=== PATIENT | female | born 1935 | race Caucasian/White ===

== ENCOUNTER 2017-07-06 14:35 | Inpatient (IN) | payer MEDICARE ==
[2017-07-06] VITALS (18 sets, daily range): BP systolic 87–126; BP diastolic 66–94
[~2017-07-06] VITALS: Ht 165.1 cm; Wt 108.2 kg
--- NOTE | 2017-07-06 12:46 | NUR ---
this credit underwriter called [facility]; spoke with ROSSI Palmer; report received; per estela, JULIÁN MARIE has notified accepting of asa in orders and condition; Estela to return call to this credit underwriter with ETA
--- NOTE | 2017-07-06 13:49 | NUR ---
received call from ROSSI Palmer; ETA 30 min; will continue to monitor
--- NOTE | 2017-07-06 14:34 | NUR ---
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
[~2017-07-06 14:35] MED LIST: ACCUPRIL5 MG PO; ADVAIR DISK1 INH; ASPIRIN EC81 MG PO; ASPIRIN325 MG PO; CALCITRIOL0.5 MC1 PO; CARVEDILOL6.25 MG PO; CENTRUM SILVER1 TAB PO; COUMADIN5 MG PO; CRESTOR20 MG PO; FLUTICASONE50 MCG; IPRATROPIU0.5 MG/3 M NEB; JANUVIA50 MG PO; LEVEMIR FL100 UNIT/M SC; LOVENOX 10100 MG/1 M SC; PLAVIX75 MG PO; PREDNISONE10 MG PO; SERTRALINE HCL50 MG PO; VITAMIN D1000 UNI1 PO; ZITHROMAX500 MG PO
--- NOTE | 2017-07-06 15:20 | NUR ---
spouse and daughter at bedside; pt offers no complaints; po fluids provided; pt updated on plan of care; afib/ivcd on monitor; blandon to gravity; bloody urine noted; pt denies taking blood thinners at home; admits to asa and plavix; oxymask changed to o2 per nc at 4L; call light within reach; will continue to monitor
[2017-07-06] MEDS ORDERED: CLOPIDOGREL75 MG PO (15:25)
[2017-07-06] MEDS ORDERED: ALBUTEROL SUL0.083 % IN (15:32)
[2017-07-06] MEDS ORDERED: ASPIRIN EC325 MG PO (15:33)
--- NOTE | 2017-07-06 15:39 | NUR ---
call placed to Dr ePraza; no amswer; message left; awaiting return call
[2017-07-06] MEDS ORDERED: COREG3.125 MG PO (15:47)
[2017-07-06] MEDS ORDERED: ASPIRIN81 MG PO (15:47)
--- NOTE | 2017-07-06 15:50 | NUR ---
return call received from Dr Peraza; updated in pt condition, cardiac reading, vs; orders received and placed on chart
--- NOTE | 2017-07-06 16:50 | NUR ---
lab rep at bedside; will continue to monitor
--- NOTE | 2017-07-06 17:07 | NUR ---
pt resting in bed with eyes closed; moaning resp noted; pt easily aroused; offers no complaints; iv patent; cardizem being weaned as per orders; amiodarone gtt cont at 1mg/min per protocol; o2 per nc; afib/ ivcd on monitor; rate 118; blandon to gravity; call light within reach; will continue to monitor
[2017-07-06 17:15] LABS: URINE BILIRUBIN - DIPSTICK SMALL (NEGATIVE); URINE BLOOD DIPSTICK LARGE (NEGATIVE); URINE GLUCOSE - DIPSTICK 100 mg/dL (NEGATIVE); URINE KETONE TRACE mg/dL (NEGATIVE); URINE LEUK ESTERASE NEGATIVE (Negative); URINE NITRITE - DIPSTICK POSITIVE (Negative); URINE PROTEIN - DIPSTICK >=300 mg/dL (NEG-TRACE); URINE SPECIFIC GRAVITY >=1.030
[2017-07-06 17:16] LABS: URINE CLARITY CLOUDY; URINE COLOR BLOODY; URINE RBC TNTC RBC/hpf (0-5)
[2017-07-06 17:17] LABS: URINE BACTERIA MODERATE hpf; URINE SQUAMOUS EPITHELIAL CELL FEW EPI/hpf (0-FEW)
--- NOTE | 2017-07-06 17:21 | NUR ---
Raheem at [facility] called per this abstract writer in regards to lovenox; times to be changed
--- NOTE | 2017-07-06 18:11 | NUR ---
awake in bed; no distress noted; offers no complaints; iv patent; amiodarone gtt infusing at 1mg/min; no redness or edema noted at site; cardizem gtt weaned; afib on monitor; rate 110-130s; tachypneic; pt denies needs; bed in lowest position; call light within reach
--- NOTE | 2017-07-06 19:00 | NUR ---
REPORT FROM Anoop ESPINOSA RN. ASSUMED PT. CARE.
--- NOTE | 2017-07-06 19:51 | NUR ---
PT. FOUND AWAKE, ALERT, ORIENTED X 3. SKIN WARM AND DRY. GAIL. PT. REMAINS A-FIB WITH RATE BETWEEN 90-130. BP STABLE AT THIS TIME 119/85. PT. C/O 2/10 BACK/NECK PAIN WHICH IS CHRONIC FOR HER. DENIES OTHER COMPLAINTS OF PAIN OR NEED. RESPS EVEN AND UNLABORED. PT. REPORTS IMPROVEMENT IN SX OF SOB SINCE EARLIER TODAY. UPDATED MED REC PER PT. STATEMENTS. WILL MAKE MD AWARE. CALL LIGHT IS WITHIN REACH. WILL CONTINUE TO MONITOR.
--- NOTE | 2017-07-06 20:45 | NUR ---
PT. BLOOD SUGAR 238 AT THIS TIME. PT. REMAINS STABLE. HR IS SLIGHTLY IMPROVED AFTER METOPROLOL ADMINISTRATION. REMAINS TACHYPNEIC AND IN A-FIB WITH RATE IN THE 80-120'S. CALL LIGHT WITHIN REACH. WILL CONTINUE TO MONITOR.
--- NOTE | 2017-07-06 22:35 | NUR ---
LAB AT BEDSIDE AT THIS TIME. PT. MEDICATED WITH LOVENOX ORDERED. REMAINS STABLE. HR REMAINS A-FIB IN THE 100-120'S. WILL CONTINUE TO MONITOR.
[2017-07-07] VITALS (24 sets, daily range): BP systolic 81–127; BP diastolic 35–87
--- NOTE | 2017-07-07 00:15 | NUR ---
AMIODARONE DRIP CONTINUES AT 0.5 MG/HR. HR REMAINS A-FIB WITH RATE IN THE 100-120'S. PT. REMAINS TACHYPENIC. SPO2 REMAINS STABLE ON 4L VIA NC. NO COMPLAINS OF PAIN OR NEED AT THIS TIME.
--- NOTE | 2017-07-07 01:55 | NUR ---
PT. CONTINUES TO REST IN NO DISTRESS. REMAINS TACHYPENIC. VSS. REMAINS A-FIB IN THE 100-120'S. AMIODARONE DRIP CONTINUES AT 0.5 MG/HR.
--- NOTE | 2017-07-07 02:15 | NUR ---
PT. REPOSITIONED IN BED FOR COMFORT. ASSISTED TO LT. SIDE LYING AT THIS TIME. PT. DENIES OTHER COMPLAINTS OR NEEDS AT THIS TIME. REMAINS IN A-FIB WITH RATE IN THE 100-120'S.
--- NOTE | 2017-07-07 04:10 | NUR ---
PT. RESTING ON RT. SIDE IN NO DISTRESS. REMAINS TACHYPENIC. REMAINS IN A-FIB WITH RATE IN THE 100-120'S. SPO2 92% ON 4L NC. CALL LIGHT REMAINS WITHIN REACH. WILL CONTINUE TO MONITOR.
[2017-07-07 05:11] LABS: HEMATOCRIT 37.6 % (37.0-47.0); HEMOGLOBIN 12.2 g/dl (12.0-16.0); IMMATURE GRANULOCYTES 0.6 % (0.0-1.0); MEAN CELL VOLUME 92.4 fL CALC (80.0-100.0); MEAN CORPUSCULAR HGB CONC 32.4 g/L CALC (32.0-36.0); NEUT# 6.72 thou/uL (2.00-7.15); RED BLOOD COUNT 4.07 mill/uL (4.20-5.60)
--- NOTE | 2017-07-07 05:30 | NUR ---
PT. PLACED ON BEDPAN AT THIS TIME. SCANT FORMED STOOL. PT. STATES UNABLE TO FINISH STOOL ON THE BEDPAN. WILL CONTINUE TO ASSIST NEEDED.
[2017-07-07 05:46] LABS: CALCIUM 10.8 mg/dL (8.4-10.2); CREATININE 1.6 mg/dL (0.5-1.0); POTASSIUM 4.6 mmol/l (3.5-5.1)
--- NOTE | 2017-07-07 06:05 | NUR ---
NEB TREATMENT IN PROGRESS. PT. LAYING ON RT. SIDE IN NO DISTRESS. REMAINS A-FIB WITH RATE OF 100-120. AMIODARONE DRIP CONTINUES AT 0.5MG/MIN. DENIES COMPLAINTS OF PAIN OR NEED.
--- NOTE | 2017-07-07 07:05 | NUR ---
resting in bed with eyes closed; easily aroused; pt offers no complaints; assessment completed at this time; pt alert and oriented; denies pain/ discomfort; no n/v noted; pt admits to improved sob; resp even and unlabored; tachypneic; lungs clear; skin color wnl; o2 per nc at 4L; prod cough of white sputum; hr irreg; strong pulses; no edema noted; afib/ivcd on monitor; abd soft with bs present; no bm noted per television script writer; blandon to gravity draining cloudy toña urine; cath urias intact; #18 in rw saline locked; #18 in lac patent with amiodarone gtt infusing at 0.5mg/min; no redness or edema noted at site; plan of care/ am meds explained; accucheck 203; call light within reach; will continue to monitor
--- NOTE | 2017-07-07 07:55 | NUR ---
awake occupational safety and health manager light; requesting bedpan for bm; bsc offered with refusal; pt placed on bedpan; afib on monitor; resp shallow/ tachypenic; iv intact; amiodarone gtt continues at 0.5mg/min; call light within reach; will continue to monitor
--- NOTE | 2017-07-07 08:45 | NUR ---
Dr Peraza at bedside to discuss plan of care
--- NOTE | 2017-07-07 09:12 | NUR ---
awake; assist with repositioning as per request; pt offers no complaints; afib on monitor; additional dose of coreg given as per orders; bp stable; o2 per nc; blandon to gravity; call light within reach; will continue to monitor
--- NOTE | 2017-07-07 10:04 | NUR ---
resting with eyes closed; no distress noted; resp shallow/ tachypneic; o2 per nc; afib 120s on monitor; call light within reach;
--- NOTE | 2017-07-07 10:40 | NUR ---
7 beat v-tach noted on monitor; Dr Peraza notified
--- NOTE | 2017-07-07 11:11 | NUR ---
accucheck of 207; insulin per orders/protocol; pt repositioned self; afib on monitor; will continue to monitor
--- NOTE | 2017-07-07 12:05 | NUR ---
pt awake; requesting to sit on sode of bed; assisted with repositioning; recliner offered with pt refusal; pt denies ability to stand; approx 5 min later pt requesting to go back to bed; repositioned per staff; afib on monitor; pt refused lunch; o2 per nc; blandon to gravity; afebrile; call light within reach; will continue to monitor
--- NOTE | 2017-07-07 12:49 | NUR ---
informed of amiodarone gtt ending per protocol; orders received and on chart
[2017-07-07 13:14] LABS: MAGNESIUM 1.6 mg/dL (1.6-2.3)
--- NOTE | 2017-07-07 13:20 | NUR ---
mag results reviewed with MD; orders received and on chart
[2017-07-07 14:11] LABS: INTERNATIONAL NORMALIZED RATIO 1.2 RATIO (0.7-1.3); PROTHROMBIN TIME 13.4 SECONDS (9.0-12.5)
--- NOTE | 2017-07-07 14:15 | NUR ---
asleep; resp shallow/tachypneic; o2 per nc; afib ivcd on monitor; blandon to gravity; awakened for meds; pt offers no complaints; po fluids provided; iv flushed and patent; mag infusing as per orders; coumadin explained and administered; call light within reach; will continue to monitor
--- NOTE | 2017-07-07 16:15 | NUR ---
awake in bed; spouse present at bedside; no distress noted; pt offers no complaints; afib on monitor; blandon to gravity; o2 per nc; iv intact to lac; no redness or edema noted at site; call light within reach; will continue to monitor
--- NOTE | 2017-07-07 17:05 | NUR ---
acchucheck 92; pt strongly encouraged to consume dinner; pt educated on levemir administered this am; spouse at bedside to encourage pt as well; pt admits to increased sob; resp rate 24-31; o2 sat 94% on 4L; neb administed earlier with no improvement; crackles noted to left base; loose cough noted; will notify
--- NOTE | 2017-07-07 17:10 | NUR ---
Dr Peraza notified of pt complaints/concerns;
--- NOTE | 2017-07-07 18:07 | NUR ---
awake; spouse departed; pt offers no complaints; resp remain tachypneic; o2 per nc; afib on monitor; iv flushed and patent; blandon to gravity; bed in lowest position; call light within reach
--- NOTE | 2017-07-07 18:36 | NUR ---
MD notified of trop 0.160; MD informed cxr still pending; pt appears in no acute distress;
--- NOTE | 2017-07-07 19:00 | NUR ---
REPORT FROM Anoop ESPINOSA RN. ASSUMED PT. CARE.
--- NOTE | 2017-07-07 20:55 | NUR ---
PT. MEDICATED PER PHYSICIAN ORDERS. ACCUCHECK 123. DENIES WANTING HS SNACK. WILL HOLD LEVEMIR AT THIS TIME. PT. WITH C/O INDIGESTION AT THIS TIME. WILL NOTIFY PHYSICIAN.
--- NOTE | 2017-07-07 21:50 | NUR ---
PT. MEDICATED PER ORDERS. RT FINISHED INCENTIVE SPIROMETRY TEACHING. CALL LIGHT WITHIN REACH. PT. DENIES OTHER COMPAINTS OR NEEDS.
--- NOTE | 2017-07-07 23:15 | NUR ---
PT. RESTING IN BED ON LT. SIDE. RESPS REMAIN SHALLOW, TACHYPENIC. HR REMAINS A-FIB WITH RATE IN THE 100-120'S.
[2017-07-08] VITALS (16 sets, daily range): BP systolic 70–143; BP diastolic 57–92
--- NOTE | 2017-07-08 01:43 | NUR ---
PT. REPOSITIONED FOR COMFORT ONTO LT. SIDE. DENIES OTHER COMPLAINTS OR NEEDS HR REMAINS A-FIB WITH RATE BETWEEN 110-130. WILL MEDICATE ORDERED.
--- NOTE | 2017-07-08 02:55 | NUR ---
PT. MEDICATED WITH METOPROLOL TART 5 MG IV X 2 AT THIS TIME. WILL CONTINUES TO ASSESS FOR BP AND HR. PT. CONTINUES TO REST ON RT. SIDE WITH EYES CLOSED AND SHALLOW, TACHYPENIC RESPS. NO COUGH NOTED. SPO2 REMAINS STABLE AT 95% ON 4L NC. URINE REMAINS DARK/CONCENTRATED. CALL LIGHT REMAINS WITHIN REACH.
--- NOTE | 2017-07-08 04:45 | NUR ---
PT. CONTINUES TO REST WITH EYES CLOSED AND TACHYPENIC SHALLOW RESPS. NO DISTRESS NOTED. EASILY AROUSABLE TO LIGHT VERBAL STIMULI. ORIENTED X 3. CALL LIGHT REMAINS WITHIN REACH. WILL CONTINUE TO ASSESS.
[2017-07-08 05:13] LABS: HEMATOCRIT 36.3 % (37.0-47.0); HEMOGLOBIN 11.9 g/dl (12.0-16.0); IMMATURE GRANULOCYTES 0.4 % (0.0-1.0); MEAN CELL VOLUME 91.7 fL CALC (80.0-100.0); MEAN CORPUSCULAR HGB 30.1 pG CALC (26.0-32.0); MEAN CORPUSCULAR HGB CONC 32.8 g/L CALC (32.0-36.0); NEUT# 11.12 thou/uL (2.00-7.15); RED BLOOD COUNT 3.96 mill/uL (4.20-5.60); RED CELL DISTRI WIDTH 15.5 % (11.5-15.5)
--- NOTE | 2017-07-08 05:15 | NUR ---
PT. GIVEN FULL BED BATH. ALL LINENS CHANGED. PT. RELUCTANTLY TOLERATED WELL. REPOSITIONED FOR COMFORT. DENIES COMPLAINTS OF PAIN OR NEED. LABS OBTAINED.
[2017-07-08 05:30] LABS: INTERNATIONAL NORMALIZED RATIO 1.4 RATIO (0.7-1.3); PROTHROMBIN TIME 15.7 SECONDS (9.0-12.5)
[2017-07-08 05:44] LABS: CALCIUM 10.4 mg/dL (8.4-10.2); CREATININE 1.8 mg/dL (0.5-1.0); MAGNESIUM 2.5 mg/dL (1.6-2.3); POTASSIUM 4.3 mmol/l (3.5-5.1)
--- NOTE | 2017-07-08 05:45 | NUR ---
NEB TREATMENT IN PROGRESS. PT. DENIES OTHER COMPLAINTS OR NEEDS.
--- NOTE | 2017-07-08 07:10 | NUR ---
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
--- NOTE | 2017-07-08 08:03 | NUR ---
awakened for breakfast; pt offers no complaints; afib/ivcd 130s on monitor; o2 per nc; repositioned self for comfort; iv intact; blandon to gravity; call light within reach; will continue to monitor
--- NOTE | 2017-07-08 09:15 | NUR ---
Dr Cortes at bedside to discuss plan of care
--- NOTE | 2017-07-08 10:00 | NUR ---
pt asleep on right side; no distress noted; pt offers no complaints; iv intact; o2 per nc; blandon to gravity; afib on monitor; call light within reach; will continue to monitor
--- NOTE | 2017-07-08 11:00 | NUR ---
assisted to bedpan; moderate loose/soft brown bm noter; pericare per staff; repositioned to right side; pt denies additional needs; call light within reach; will continue to monitor
--- NOTE | 2017-07-08 11:55 | NUR ---
pt awake in bed watching tv; no acute distress noted; pt offers no complaints; tachypneic; o2 per nc; o2 sat stable; iv intact; blandon to gravity; pt denies needs; call light within reach; will continue to monitor
--- NOTE | 2017-07-08 12:47 | NUR ---
Dr Ghotra at bedside to discuss plan of care; pt to be transferred to [facility];
--- NOTE | 2017-07-08 13:02 | NUR ---
1302- received call from [facility]; request this commercial loan underwriter to fax face sheet; 1318- facesheet faxed to [phone] as per [facility] request; fax confirmation received;
--- NOTE | 2017-07-08 13:45 | NUR ---
received call from [facility] transfer center; general report given; awaiting bed assignment
--- NOTE | 2017-07-08 14:10 | NUR ---
resting in bed with eyes closed; resp shallow at 25; o2 per nc; blandon to gravity; afib/ivcd on monitor; call light within reach; will continue to monitor
--- NOTE | 2017-07-08 14:39 | NUR ---
called received from patient placement, Merry; room assignment received [facility] [facility] 766A; report to be called at [phone]
--- NOTE | 2017-07-08 14:49 | NUR ---
call placed to [facility]; tranfer information given to [facility] to return with ETA due to additional transfer pentnoe
--- NOTE | 2017-07-08 14:57 | NUR ---
ETA for transport 50 minutes
--- NOTE | 2017-07-08 15:19 | NUR ---
assist to side of bed; medicated with tylenol for complaints of back and neck pain; pt updated in poc/ETA for tranport; pt admits to informing spouse of impending transfer;
--- NOTE | 2017-07-08 15:59 | NUR ---
resting in bed with eyes closed; no distress noted; o2 per nc; iv intact; blandon to gravity; blandon emptied for 200cc sediment dk toña urine; call light within reach; will continue to monitor
--- NOTE | 2017-07-08 16:17 | NUR ---
1608- [facility] on unit; report given; pt belongings (slippers, dentures and cell phone) sent with pt; 1617- pt discharged from unit to [facility] with [facility] transport in stable condition;
--- NOTE | 2017-07-08 16:41 | NUR ---
report called to ROSSI Smith at [facility]: direct number provided for any additional information/questions
== END 2017-07-08 16:17 | disposition short-term general hospital (02) | DRG 280 ==
LOC: ICU 14:35
PROVIDERS: ADMIT Internal Medicine; ATTEND Internal Medicine
DX: I48.91 Unspecified atrial fibrillation (principal); I21.A1 Myocardial infarction type 2; J96.20 Acute and chronic respiratory failure, unspecified whether with hypoxia or hypercapnia; I13.0 Hypertensive heart and chronic kidney disease with heart failure and stage 1 through stage 4 chronic kidney disease, or unspecified chronic kidney disease; I50.22 Chronic systolic (congestive) heart failure; E11.22 Type 2 diabetes mellitus with diabetic chronic kidney disease; J44.9 Chronic obstructive pulmonary disease, unspecified; N18.3 Chronic kidney disease, stage 3 (moderate); E66.01 Morbid (severe) obesity due to excess calories; I25.5 Ischemic cardiomyopathy; I25.119 Atherosclerotic heart disease of native coronary artery with unspecified angina pectoris; E78.5 Hyperlipidemia, unspecified; G47.33 Obstructive sleep apnea (adult) (pediatric); G89.4 Chronic pain syndrome; M19.90 Unspecified osteoarthritis, unspecified site; I44.7 Left bundle-branch block, unspecified; Z95.5 Presence of coronary angioplasty implant and graft; Z68.39 Body mass index [BMI] 39.0-39.9, adult
CPT/HCPCS: J0282; J1650; J3475